=== PATIENT | male | born 1940 | race Caucasian/White ===

== ENCOUNTER → 2017-01-10 | Outpatient (CLI) | payer MEDICARE ==
--- NOTE | 2017-01-10 09:48 | US ---
EXAMINATION TYPE: US liver DATE OF EXAM: 01/10/2017 COMPARISON: NONE CLINICAL HISTORY: R94.5 Elevated liver enzymes,E80.7 Elevated. Elevated liver enzymes, elevated total bilirubin EXAM MEASUREMENTS: Liver Length: 16.1 cm Gallbladder Wall: 0.2 cm CBD: 0.3 cm Right Kidney: 11.3 x 4.7 x 4.6 cm Pancreas: Obscured by bowel gas Liver: attenuating and heterogeneous echotexture, limiting evaluation for underlying masses. Hypoech oic area near gómez hepatis = 1.5cm - probable focal sparing. Cystic area right lobe = 1.8 x 1.5 x 1. 6cm Gallbladder: no evidence of stones Evidence for sonographic López's sign: no CBD: wnl Right Kidney: no evidence of hydronephrosis or mass IMPRESSION: 1. Hyperechoic hepatic echotexture most commonly related to hepatic steatosis appearing mild to moder ate with focal fatty sparing around the gallbladder fossa in segment IVb of the liver. 2. No sonographic evidence of cholelithiasis or acute cholecystitis. 3. Simple appearing hepatic cyst.
== END | disposition home or self-care (01) ==
LOC: RADUSWWP 08:49
PROVIDERS: ATTEND Family Medicine
DX: K76.89 Other specified diseases of liver (principal)
CPT/HCPCS: 76705